=== PATIENT | male | born 1995 | race Caucasian/White ===

== ENCOUNTER 2022-03-09 19:32 | Emergency (ER) | payer BC, OTHER ==
--- NOTE | 2022-03-09 19:39 | ERPHSYRPT ---
- History of Present Illness Time Seen by Provider: 03/09/22 19:39 Source: patient Exam Limitations: no limitations Physician History: This is a 26-year-old white male patient who has chronic poor dentition and fractured teeth who presents to the emergency department after being seen in outpatient clinic and given a prescription for clindamycin for dental pain. He states that he has taken 2 doses of the clindamycin he still has pain. He has not had a fever. He does not have a dental appointment scheduled. Timing/Duration: gradual onset Severity: mild ENT Location: dental (To moderate) Prearrival Treatment: over the counter meds, prescription meds Modifying Factors: Improves With: other (Hurts to chew) Associated Symptoms: tooth pain, No facial pain/swelling, No swollen glands, No sore throat, No difficulty swallowing Allergies/Adverse Reactions: No Known Drug Allergies Allergy (Unverified 03/09/22 19:36) Home Medications: clindamycin HCL [Clindamycin HCl] 600 mg PO BID 03/09/22 [History] Travel Risk - International Travel Have you traveled outside of the country in past 3 weeks: No - Coronavirus Screening Are you exhibiting any of the following symptoms?: No Close contact with a COVID-19 positive Pt in past 14-21 Days: No - Review of Systems Constitutional: No Symptoms Eyes: No Symptoms Ears, Nose, & Throat: Other Respiratory: No Symptoms Cardiac: No Symptoms Abdominal/Gastrointestinal: No Symptoms Genitourinary Symptoms: No Symptoms Musculoskeletal: No Symptoms Skin: No Symptoms Neurological: No Symptoms Psychological: No Symptoms Endocrine: No Symptoms Hematologic/Lymphatic: No Symptoms Immunological/Allergic: No Symptoms All Other Systems: Reviewed and Negative - Past Medical History Pertinent Past Medical History: No - Past Surgical History Past Surgical History: No - Nursing Vital Signs Nursing Vital Signs: Initial Vital Signs Temperature 98.0 F 03/09/22 19:39 Pulse Rate 80 03/09/22 19:39 Respiratory Rate 16 03/09/22 19:39 Blood Pressure 137/82 03/09/22 19:39 O2 Sat by Pulse Oximetry 96 03/09/22 19:39 Pain Scale Pain Intensity 8 - Physical Exam General Appearance: no apparent distress, alert, anxiety Eye Exam: bilateral eye: normal inspection, PERRL, EOMI Ear Exam: bilateral ear: auricle normal Nasal Exam: normal inspection Throat Exam: dental tenderness (Left lower molars with multiple fractures and generalized dental caries) Neck Exam: normal inspection, non-tender, supple, full range of motion Cardiovascular/Respiratory Exam: chest non-tender, no respiratory distress Abdominal Exam: non-tender Neurologic Exam: alert, oriented x 3, cooperative, 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 Add ibuprofen 600 mg orally 3 times a day with food for the next 5 days. Take your Percocet pain medicine as prescribed. Follow-up with the dentist for definitive care. May also use topical numbing medication that you can purchase [id number]
[2022-03-09 19:47] VITALS: O2SAT 96
[2022-03-09] MEDS ORDERED: PERCOCET TABLET 5/325MG PO STA (19:58)
[2022-03-09] MEDS ORDERED: PERCOCET TABLET 5/325MG ONE (20:07)
[2022-03-09 20:16] VITALS: BP 133/85; PULSE 77
== END 2022-03-09 20:16 | disposition home or self-care (01) ==
LOC: ED 19:32
DX: K02.9 Dental caries, unspecified (principal); K08.89 Other specified disorders of teeth and supporting structures
CPT/HCPCS: 99281; A9270-GY